=== PATIENT | male | born 1980 | race Caucasian/White ===

== ENCOUNTER → 2020-08-10 09:19 | Outpatient (CLI) | payer MEDICARE, SELFPAY ==
--- NOTE | ~2020-08-10 | MR_ITS ---
EXAMINATION: MR thoracic spine wo con EXAM DATE: 08/10/2020 09:55 INDICATION: Thoracic back pain. Bilateral foot pain. TECHNIQUE: Multi-sequential, multiplanar MR images of the thoracic spine were obtained without contra st. Sagittal T1, T2, T2 fat saturation, axial T2 weighted images reviewed. There is no prior study for comparison. FINDINGS: Suspect several lung nodules. There are bone lesions and T1, T3, T7, T9 and T10, metastatic disease versus atypical hemangiomata. Largest is in T10 measuring 1.[address] chest abdomen pelvis with contrast for further evaluation. I phoned office of [facility] on 08/10/2020 11:37 COOPERATIVE EXTENSION AGENT to discuss these results. Office is closed on Fridays. The vertebral bodies are aligned in the AP dimension. Vertebral body and disc heights are well-mainta ined. Only minimal thoracic disc disease. Mild diffuse thoracic facet arthropathy. Thoracic neural fo ramen and central canal widely patent. The spinal cord signal intensity and intrinsic morphology is n ormal. Paraspinal soft tissue is unremarkable. IMPRESSION: 1. Possible pulmonary, osseous metastatic disease; recommend CT chest abdomen pelvis with contrast. 2. Mild thoracic spondylosis. No stenosis. Reviewed, dictated and finalized at location B. ERATIVE EXTENSION AGENT
== END ==
PROVIDERS: Visit Provider Nurse Practitioner Family
DX: M47.894 Other spondylosis, thoracic region (principal)
CPT/HCPCS: 72146

== ENCOUNTER 2021-08-18 17:45 | Emergency (ER) | payer MEDICARE, SELFPAY ==
[2021-08-18] VITALS (13 sets, daily range): BP systolic 98–156; BP diastolic 61–85; PULSE 75–98; RESP 9–26; TEMP 36.4–37.1; O2SAT 97–100
--- NOTE | ~2021-08-18 | XR_ITS ---
EXAMINATION: XR chest 1V portable 08/18/2021 18:31 INDICATION: Loss of consciousness. Abdomen pain. PROCEDURE: AP portable chest COMPARISON: No prior studies for comparison. FINDINGS: The lungs are clear. The cardiomediastinal silhouette is within normal limits. There are no pleural effusions. There is no pneumothorax suspected. IMPRESSION: 1: NO ACUTE CARDIOPULMONARY DISEASE. Reviewed, dictated and finalized at location A. 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
--- NOTE | ~2021-08-18 | CT_ITS ---
EXAMINATION: CT abdomen pelvis w con DATE: 08/18/2021 20:28 INDICATION: Abdominal and umbilical pain. Intermittent. TECHNIQUE: Computed tomography (CT) of the abdomen and pelvis was performed with 100 cc Omnipaque 350 intravenous contrast. The dose-length product was 263.83 mGy-cm. Automated exposure control and iter ative reconstruction technique were employed. COMPARISON: None. FINDINGS: Lung bases are unremarkable. Heart size normal. No significant vascular abnormality. No lym phadenopathy. The liver, spleen, pancreas, adrenal glands and kidneys are unremarkable. Gallbladder i s present. No free air or free fluid. Moderate colonic fecal loading. Status post fusion at L5-S1 wit h prosthetic disc device. IMPRESSION: 1. No acute abdominal abnormality. Reviewed, dictated and finalized at location A. ATOR LIGHTS
[2021-08-18] MEDS: SODIUM CHLORIDE 0.9% IV 1,000 ML 999 ML IV CONT (18:09)
[2021-08-18] MEDS: Please add drug allergy info to patient profile. 1 EACH XX (18:12)
--- NOTE | 2021-08-18 18:12 | ED.ABDPAIN ---
HPI - Abdominal Pain General Chief Complaint: Abdominal Pain <Christine River MD - Last Filed: 08/18/21 18:31> Stated Complaint: abd pain <Christine River MD - Last Filed: 08/18/21 18:31> Time Seen by Provider: 08/18/21 17:49 <Christine River MD - Last Filed: 08/18/21 18:31> Source: patient, EMS and RN notes reviewed <Christine River MD - Last Filed: 08/18/21 18:31> Mode of arrival: EMS <Christine River MD - Last Filed: 08/18/21 18:31> Limitations: no limitations <Christine River MD - Last Filed: 08/18/21 18:31> History of Present Illness HPI narrative: Patient is 40 years old white male came to the emergency room by ambulance because of intermittent abdominal pain for the last 2 years. Patient feels like he is trying to pass out all the time because of the abdominal pain. Patient have history of 3 back surgery over 8 years ago, currently disabled, lives with his brother, does not smoke, drinks occasionally and uses medical marijuana. Patient denies any fever, chills, nausea, vomiting, history of abdominal surgery, history of depression, suicidal or homicidal ideation. <Christine River MD - Last Filed: 08/18/21 18:31> Related Data Allergies/Adverse Reactions: Allergies Allergy/AdvReac Type Severity Reaction Status Date / Time No Known Allergies Allergy Verified 08/18/21 18:06 <Christine River MD - Last Filed: 08/18/21 18:31> Review of Systems Review of Systems: CONSTITUTIONAL: Denies fever, chills, or sweats. EYES: Denies visual changes, redness, or discharge. ENT: Denies rhinorrhea, congestion, sore throat, or otalgia. CARDIOVASCULAR: Denies chest pain, palpitations, or edema. RESPIRATORY: Denies cough or dyspnea. GASTROINTESTINAL: Abdominal pain GENITOURINARY: Denies dysuria or hematuria. SKIN: Denies rash or itching. MUSCULOSKELETAL: Denies back pain, joint pain, or myalgia. NEUROLOGIC: Denies headache, numbness, or weakness. PSYCHIATRIC: Denies anxiety or depression. <Christine River MD - Last Filed: 08/18/21 18:31> Exam Narrative: General appearance: Well-developed, well-nourished, talking slowly, takes time to answer questions, does not look in pain or distress, intermittent twitches Skin: Normal color Head: Normocephalic, nontraumatic Eyes: Clear conjunctiva ENT: Oropharynx normal, ears normal, nose normal Neck: Supple, nontender Chest and respiratory: Airway patent, no respiratory distress, no accessory muscle use Heart: Regular rate/rhythm Abdomen: Soft, nontender, no organomegaly, quiet bowel sounds Vascular: Normal peripheral pulses, normal capillary refill. Musculoskeletal: Normal range of motion, nontender back Neurologic: Alert and oriented ?3, LEATHER SCRAPER is normal as tested, no gross motor deficit <Christine River MD - Last Filed: 08/18/21 18:31> Course Vital Signs Vital signs: Vital Signs Temperature 36.4 C 08/18/21 17:44 Pulse Rate 92 08/18/21 17:44 Respiratory Rate 9 L 08/18/21 17:44 Blood Pressure 125/76 08/18/21 17:44 Pulse Oximetry 100 08/18/21 17:44 Temperature 36.4 C 08/18/21 17:44 Pulse Rate 81 08/18/21 19:15 Respiratory Rate 17 08/18/21 19:15 Blood Pressure 156/83 H 08/18/21 18:51 Pulse Oximetry 98 08/18/21 19:15 <Christine River MD - Last Filed: 08/18/21 18:31> Vital Signs Temperature 36.4 C 08/18/21 17:44 Pulse Rate 92 08/18/21 17:44 Respiratory Rate 9 L 08/18/21 17:44 Blood Pressure 125/76 08/18/21 17:44 Pulse Oximetry 100 08/18/21 17:44 Temperature 36.4 C 08/18/21 17:44 Pulse Rate 81 08/18/21 19:15 Respiratory Rate 17 08/18/21 19:15 Blood Pressure 156/83 H 08/18/21 18:51 Pulse Oximetry
[2021-08-18 18:15] LABS: Basophils Percent Auto 0.6 % (0.2-1.2); Eosinophils Percent Auto 0.4 % (0-4.4); Hematocrit 39.7 % (42.0-52.0); Hemoglobin 13.6 g/dL (14.0-18.0); Immature Granulocyte Absolute 0.01 K/mm3 (0.00-0.031); Immature Granulocyte Percent A 0.2 % (0-0.5); Lymphocytes Absolute Auto 1.02 K/mm3 (0.9-3.2); Mean Corpuscular HGB Conc 34.3 g/dl (32-36); Mean Corpuscular Hemoglobin 32.1 pg (26-34); Mean Corpuscular Volume 93.6 fl (80-100); Mean Platelet Volume 8.9 fl (7.4-10.4); Monocytes Absolute Auto 0.4 K/mm3 (0.1-0.6); Monocytes Percent Auto 8.6 % (2.6-8.5); Neutrophils Absolute Auto 3.4 K/mm3 (1.3-6.7); Neutrophils Percent Auto 69.2 % (45.5-73.1); Platelet Count Result 199 k/mm3 (150-375); Red Blood Count 4.24 M/mm3 (4.6-6.20); White Blood Count 4.9 K/mm3 (4.5-10.0)
--- NOTE | 2021-08-18 18:19 | ECG_ITS ---
Measurements Intervals [place] Rate: 78 P: 75 CO: 141 QRS: 57 QRSD: 104 T: 69 QT: 372 QTc: 425 Interpretive Statements SINUS RHYTHM INCOMPLETE RIGHT BUNDLE BRANCH BLOCK [90+ ms QRS DURATION, TERMINAL R IN V1/V2, 40+ ms S IN I/aVL/V4/V5/V6] BORDERLINE ECG NO PREVIOUS ECG AVAILABLE FOR COMPARISON Electronically Signed On 08-19-2021 13:57:05 SENIOR IT SPECIALIST by Alcides Rodríguez M.D.
[2021-08-18 18:28] LABS: Alanine Aminotransferase 34 U/L (4-50); Albumin Level 4.4 g/dL (3.5-5.1); Alkaline Phosphatase 39 U/L (38-126); Anion Gap 8 mmol/L (8-16); Aspartate Amino Transferase 27 U/L (17-59); Bilirubin,Total 1.4 mg/dL (0.2-1.3); Blood Urea Nitrogen 27 mg/dL (9-20); Calcium 9.3 mg/dL (8.4-10.2); Carbon Dioxide 29 mmol/L (22-30); Chloride 100 mmol/L (98-107); Estimated CRCL calculation 65 ml/min; Estimated Glomerular Filt Rate > 60; Glucose 161 mg/dL (65-110); Lipase 65 U/L (23-300); Potassium 3.9 mmol/L (3.4-5.0); Sodium 137 mmol/L (137-145)
[2021-08-18 19:13] LABS: Lactic Acid Reflex 1.9 mmol/L (0.7-2.1)
[2021-08-18 19:16] LABS: Ethanol < 10 mg/dL (<10)
[2021-08-18 19:18] LABS: Creatine Kinase 51 U/L (55-170); Magnesium 1.9 mg/dL (1.6-2.3)
[2021-08-18 19:18] LABS: Add Urine Microscopic? YES; Appearance Urine Clear (Clear); Bilirubin Urine Negative (Negative); Blood Urine Negative (Negative); Color Urine Yellow (Yellow); Glucose Urine UA Negative (Negative); Ketones Urine Trace mg/dL (Negative); Leukocyte Esterase Ur Negative LEU/UL (Negative); Mucus Urine Rare /lpf; Nitrate Urine Negative (Negative); Protein Urine 1+ mg/dL (Negative); RBC Urine 0-2 /hpf (0-2); Specific Grav Ur 1.026 (1.001-1.035); Urobilinogen Urine Negative mg/dL (<2.0); WBC Urine 0-3 /hpf
[2021-08-18 19:23] LABS: Amphetamine Screen Urine Negative (Negative); Barbiturate Screen Urine Negative (Negative); Benzodiazepines Screen Urine Negative (Negative); Cannabinoid Screen Urine Positive (Negative); Cocaine Screen Urine Negative (Negative); Methadone Screen Urine Negative (Negative); Opiate Screen Urine Negative (Negative); Phencyclidine Screen Urine Negative (Negative)
== END 2021-08-18 21:29 | disposition home or self-care (01) ==
PROVIDERS: Emergency Medicine; Physician Assistant; Emergency Provider Emergency Medicine
DX: R10.9 Unspecified abdominal pain (principal); I45.10 Unspecified right bundle-branch block
CPT/HCPCS: 36415; 71045; 74177; 80053; 80307; 81001; 82550; 83605; 83690; 83735; 85025; 93005; 96360; 96361; 99284; J7030; Q9967